=== PATIENT | female | born 1955 | race African-American/Black ===

== ENCOUNTER 2017-04-08 12:11 | Inpatient (IN) | payer MEDICARE, MEDICAID ==
[~2017-04-08] VITALS: Ht 167.6 cm; Wt 90.7 kg
[~2017-04-08 12:11] MED LIST: ASPI-1079 PO; CLOP75TA33 PO; DOCU-138 PO; ISOS60TA4 PO; LOSA100T14 PO; METO25TA6 PO; PRAV20TA57 PO; naproxen; nitroglycerin SL
[2017-04-08] MEDS ORDERED: METHYLPREDNISOLONE SOD SUCC 125 MG/2 ML VIAL IV STA (13:04)
[2017-04-08] MEDS ORDERED: IPRATROPIUM BROMIDE (0.02%) 0.5MG/2.5ML NEB HHN STA (13:04)
[2017-04-08] MEDS ORDERED: ALBUTEROL (0.083%) 2.5MG/3ML NEB HHN STA (13:04)
[2017-04-08 14:59] LABS: INR 1.1; PROTHROMBIN TIME 11.4 sec (9.4-11.6)
[2017-04-08 15:07] LABS: CARBON DIOXIDE 27 mEq/L (21-32); CHLORIDE 106 mEq/L (98-107)
[2017-04-08 15:10] LABS: BASOPHILS % 0.4 % (0.0-2.0); EOSINOPHILS % 0.6 % (0.0-5.0); HEMOGLOBIN. 14.1 g/dL (12.0-16.0); LYMPHOCYTES % 21.4 % (20.0-50.0); MEAN CORPUSCULAR VOLUME 89.2 fL (81.0-99.0); MONOCYTES % 7.5 % (2.0-8.0); NEUTROPHILS % 70.1 % (40.0-76.0); PLATELET 203 x1000/uL (130-400); RED CELL DISTRIBUTION WIDTH 16.3 % (11.6-14.6)
[2017-04-08] MEDS ORDERED: ASPIRIN 325MG TABLET PO ONE (15:45)
[2017-04-08] MEDS ORDERED: NITROGLYCERIN OINT 1GM/INCH UDPKT TD ONE (17:00)
[2017-04-08] MEDS ORDERED: DOCUSATE SODIUM 100MG CAPSULE PO PRN (19:00)
[2017-04-08] MEDS ORDERED: CLONIDINE 0.1MG TABLET PO PRN (19:00)
[2017-04-08] MEDS ORDERED: ENOXAPARIN 40MG/0.4ML SYR SUBCUT SCH (19:00)
[2017-04-08] MEDS ORDERED: ONDANSETRON HCL 4MG/2ML VIAL IV PRN (19:00)
[2017-04-08] MEDS ORDERED: ACETAMINOPHEN 325MG TABLET PO PRN (19:00)
[2017-04-08] MEDS ORDERED: MAGNESIUM/ALUMINUM HYDROXIDE/SIMETHICONE 30ML UDC PO PRN (19:00)
[2017-04-08] MEDS ORDERED: PRAV40TA58 PO (20:42)
[2017-04-08 20:53] VITALS: BP 127/79
[2017-04-08] MEDS ORDERED: MEDICATION NOT ON FORMULARY EA (Pravastatin Sodium 40 MG) PO SCH (21:00)
[2017-04-08] MEDS: ATORVASTATIN CALCIUM 10MG TABLET PO SCH (21:26)
[2017-04-08] MEDS: HYDROCODONE/ACETAMINOPHEN 5/325MG TABLET PO PRN (21:27)
[2017-04-08] MEDS: ENOXAPARIN 30MG/0.3ML SYR SUBCUT SCH (21:27)
[2017-04-08] MEDS: IPRATROPIUM/ALBUTEROL 0.5-3(2.5)MG/3ML NEB INH PRN (21:36)
[2017-04-08] MEDS: BUDESONIDE 0.5MG/2ML NEB HHN SCH (21:37)
[2017-04-08 22:22] VITALS: BP 127/79
[2017-04-09 00:05] VITALS: BP 140/67
[2017-04-09] MEDS: IPRATROPIUM/ALBUTEROL 0.5-3(2.5)MG/3ML NEB INH PRN ×3 (00:12→10:04)
[2017-04-09 00:42] LABS: CARBON DIOXIDE 26 mEq/L (21-32); CHLORIDE 100 mEq/L (98-107); CREATINE KINASE 118 IU/L (26-192); CREATINE KINASE MB FRACTION 1.8 ng/mL (0.5-3.6); TROPONIN I 0.12 ng/mL (0.00-0.04)
[2017-04-09 04:00] VITALS: BP 127/66
[2017-04-09 07:28] LABS: BASOPHILS % 0.1 % (0.0-2.0); HEMATOCRIT. 39.3 % (36.0-48.0); LYMPHOCYTES % 11.4 % (20.0-50.0); MEAN CORPUSCULAR HEMOGLOBIN 29.7 pg (28.0-32.0); MEAN CORPUSCULAR VOLUME 89.7 fL (81.0-99.0); MEAN PLATELET VOLUME 9.2 fl (7.4-10.4); MONOCYTES % 6.4 % (2.0-8.0); NEUTROPHILS % 82.1 % (40.0-76.0); PLATELET 203 x1000/uL (130-400); RED BLOOD CELL COUNT 4.38 mill/uL (4.2-5.4)
[2017-04-09 07:55] LABS: CREATINE KINASE MB FRACTION 1.6 ng/mL (0.5-3.6); TROPONIN I 0.12 ng/mL (0.00-0.04)
[2017-04-09 08:00] VITALS: BP 132/80
[2017-04-09 08:41] LABS: GLUCOSE URINE 1+ (NEGATIVE); KETONES URINE TRACE (NEGATIVE); LEUKOCYTE ESTERASE URINE NEGATIVE (NEGATIVE); NITRITE URINE NEGATIVE (NEGATIVE); OCCULT BLOOD URINE NEGATIVE (NEGATIVE); PROTEIN URINE TRACE (NEGATIVE); SPECIFIC GRAVITY URINE 1.021 (1.005-1.030)
[2017-04-09 08:44] LABS: CLARITY URINE CLEAR (CLEAR); COLOR URINE DARK YELLOW (YELLOW)
[2017-04-09] MEDS ORDERED: ASPIRIN 81MG TABLET PO SCH (09:00)
[2017-04-09 09:12] LABS: *AMPHETAMINES SCREEN URINE NEGATIVE (NEGATIVE); *BARBITURATES SCREEN URINE NEGATIVE (NEGATIVE); *BENZODIAZEPINES SCREEN URINE NEGATIVE (NEGATIVE); *COCAINE SCREEN URINE PRESUMTIVE POSITIVE (NEGATIVE); CANNABINOID URINE SCREEN NEGATIVE (NEGATIVE); METHADONE URINE SCREEN NEGATIVE (NEGATIVE); OPIATES URINE SCREEN PRESUMTIVE POSITIVE (NEGATIVE); PHENCYCLIDINE URINE SCREEN NEGATIVE (NEGATIVE)
[2017-04-09] MEDS: METOPROLOL TARTRATE 25MG TABLET PO SCH (09:53)
[2017-04-09] MEDS: ISOSORBIDE MONONITRATE 60MG TABLET SR 24HR PO SCH (09:53)
[2017-04-09] MEDS: ASPIRIN 81MG EC TABLET PO SCH (09:53)
[2017-04-09] MEDS: ENOXAPARIN 30MG/0.3ML SYR SUBCUT SCH ×2 (09:54→20:54)
[2017-04-09] MEDS: BUDESONIDE 0.5MG/2ML NEB HHN SCH ×2 (10:04→21:06)
[2017-04-09] MEDS: CLOPIDOGREL 75MG TABLET PO SCH (11:33)
[2017-04-09] MEDS: AZITHROMYCIN 500 MG TABLET PO SCH (11:33)
[2017-04-09 12:00] VITALS: BP 110/55
[2017-04-09 16:00] VITALS: BP 115/50
[2017-04-09 20:00] VITALS: BP 109/51
[2017-04-09] MEDS: ATORVASTATIN CALCIUM 10MG TABLET PO SCH (20:54)
[2017-04-10] VITALS (7 sets, daily range): BP systolic 106–137; BP diastolic 50–72
[2017-04-10 06:41] LABS: BASOPHILS % 0.4 % (0.0-2.0); EOSINOPHILS % 0.4 % (0.0-5.0); HEMATOCRIT. 37.3 % (36.0-48.0); HEMOGLOBIN. 12.5 g/dL (12.0-16.0); LYMPHOCYTES % 31.3 % (20.0-50.0); MEAN CORPUSCULAR HEMOGLOBIN 30.1 pg (28.0-32.0); MEAN CORPUSCULAR VOLUME 89.6 fL (81.0-99.0); MEAN PLATELET VOLUME 9.2 fl (7.4-10.4); MONOCYTES % 6.8 % (2.0-8.0); NEUTROPHILS % 61.1 % (40.0-76.0); PLATELET 202 x1000/uL (130-400); RED BLOOD CELL COUNT 4.16 mill/uL (4.2-5.4); RED CELL DISTRIBUTION WIDTH 16.4 % (11.6-14.6)
[2017-04-10 06:50] LABS: CARBON DIOXIDE 27 mEq/L (21-32); CHLORIDE 105 mEq/L (98-107)
[2017-04-10] MEDS: AZITHROMYCIN 500 MG TABLET PO SCH (09:21)
[2017-04-10] MEDS: METOPROLOL TARTRATE 25MG TABLET PO SCH ×2 (09:21→21:01)
[2017-04-10] MEDS: ASPIRIN 81MG EC TABLET PO SCH (09:21)
[2017-04-10] MEDS: ENOXAPARIN 30MG/0.3ML SYR SUBCUT SCH ×2 (09:21→21:02)
[2017-04-10] MEDS: CLOPIDOGREL 75MG TABLET PO SCH (09:21)
[2017-04-10] MEDS: ISOSORBIDE MONONITRATE 60MG TABLET SR 24HR PO SCH (09:21)
[2017-04-10] MEDS: HYDROCODONE/ACETAMINOPHEN 5/325MG TABLET PO PRN ×2 (09:55→18:23)
[2017-04-10] MEDS: POTASSIUM CHLORIDE 20MEQ TABLET SR PO SCH (11:51)
[2017-04-10] MEDS: BUDESONIDE 0.5MG/2ML NEB HHN SCH ×2 (12:15→21:34)
[2017-04-10] MEDS: ATORVASTATIN CALCIUM 10MG TABLET PO SCH (21:00)
[2017-04-11] VITALS (10 sets, daily range): BP systolic 120–167; BP diastolic 26–79
[2017-04-11 06:14] LABS: BASOPHILS % 0.6 % (0.0-2.0); EOSINOPHILS % 1.1 % (0.0-5.0); HEMATOCRIT. 38.8 % (36.0-48.0); HEMOGLOBIN. 12.9 g/dL (12.0-16.0); LYMPHOCYTES % 42.2 % (20.0-50.0); MEAN CORPUSCULAR HEMOGLOBIN 29.8 pg (28.0-32.0); MEAN CORPUSCULAR VOLUME 89.8 fL (81.0-99.0); MONOCYTES % 8.1 % (2.0-8.0); PLATELET 204 x1000/uL (130-400); RED BLOOD CELL COUNT 4.32 mill/uL (4.2-5.4); RED CELL DISTRIBUTION WIDTH 16.1 % (11.6-14.6)
[2017-04-11 06:35] LABS: CARBON DIOXIDE 28 mEq/L (21-32); CHLORIDE 106 mEq/L (98-107)
[2017-04-11] MEDS: ENOXAPARIN 30MG/0.3ML SYR SUBCUT SCH (07:41)
[2017-04-11] MEDS: AZITHROMYCIN 500 MG TABLET PO SCH (08:15)
[2017-04-11] MEDS: HYDROCODONE/ACETAMINOPHEN 5/325MG TABLET PO PRN ×3 (08:16→19:26)
[2017-04-11] MEDS: CLOPIDOGREL 75MG TABLET PO SCH (08:38)
[2017-04-11] MEDS: POTASSIUM CHLORIDE 20MEQ TABLET SR PO SCH (08:38)
[2017-04-11] MEDS: ASPIRIN 81MG EC TABLET PO SCH (08:38)
[2017-04-11] MEDS: METOPROLOL TARTRATE 25MG TABLET PO SCH ×2 (08:38→21:50)
[2017-04-11] MEDS: ISOSORBIDE MONONITRATE 60MG TABLET SR 24HR PO SCH (08:38)
[2017-04-11] MEDS: BUDESONIDE 0.5MG/2ML NEB HHN SCH ×2 (09:19→18:00)
[2017-04-11] MEDS ORDERED: IOHEXOL-300 100 ML BOTTLE ONE ×2 (12:35→13:27)
[2017-04-11] MEDS ORDERED: LIDOCAINE HCL 1% 20ML VIAL (Pyxis) INJ ONE (12:36)
[2017-04-11] MEDS ORDERED: FENTANYL CITRATE/PF 50MCG/ML 2ML VIAL ONE (13:04)
[2017-04-11] MEDS ORDERED: MIDAZOLAM HCL 2 MG/2 ML VIAL ONE (13:04)
[2017-04-11] MEDS ORDERED: IOVERSOL 240MG/ML 100ML BOTTLE IV ONE (13:07)
[2017-04-11] MEDS ORDERED: TICAGRELOR 90 MG TABLET PO ONE (13:48)
[2017-04-11] MEDS ORDERED: ACETAMINOPHEN 325MG TABLET PO PRN (14:00)
[2017-04-11] MEDS ORDERED: ATROPINE SULFATE 1MG/10ML SYR IV PRN (14:00)
[2017-04-11] MEDS ORDERED: HEPARIN SODIUM 1,000 UNIT/1ML VIAL IV ONE (14:03)
[2017-04-11] MEDS: IPRATROPIUM/ALBUTEROL 0.5-3(2.5)MG/3ML NEB INH PRN (18:50)
[2017-04-11] MEDS: ATORVASTATIN CALCIUM 10MG TABLET PO SCH (21:48)
[2017-04-11] MEDS: TICAGRELOR 90 MG TABLET PO SCH (22:02)
[2017-04-12] VITALS (11 sets, daily range): BP systolic 109–160; BP diastolic 60–85
[2017-04-12] MEDS: HYDROCODONE/ACETAMINOPHEN 5/325MG TABLET PO PRN ×3 (04:06→15:49)
[2017-04-12 06:19] LABS: BASOPHILS % 0.4 % (0.0-2.0); EOSINOPHILS % 0.8 % (0.0-5.0); HEMATOCRIT. 40.6 % (36.0-48.0); HEMOGLOBIN. 13.6 g/dL (12.0-16.0); MEAN CORPUSCULAR VOLUME 89.8 fL (81.0-99.0); MEAN PLATELET VOLUME 8.7 fl (7.4-10.4); MONOCYTES % 8.3 % (2.0-8.0); NEUTROPHILS % 63.5 % (40.0-76.0); PLATELET 202 x1000/uL (130-400); RED BLOOD CELL COUNT 4.52 mill/uL (4.2-5.4); RED CELL DISTRIBUTION WIDTH 16.5 % (11.6-14.6)
[2017-04-12 06:20] LABS: CARBON DIOXIDE 26 mEq/L (21-32); CHLORIDE 106 mEq/L (98-107)
[2017-04-12] MEDS: ASPIRIN 81MG EC TABLET PO SCH (08:23)
[2017-04-12] MEDS: POTASSIUM CHLORIDE 20MEQ TABLET SR PO SCH (08:23)
[2017-04-12] MEDS: ISOSORBIDE MONONITRATE 60MG TABLET SR 24HR PO SCH (08:24)
[2017-04-12] MEDS: METOPROLOL TARTRATE 25MG TABLET PO SCH (08:24)
[2017-04-12] MEDS: TICAGRELOR 90 MG TABLET PO SCH (08:25)
[2017-04-12] MEDS: AZITHROMYCIN 500 MG TABLET PO SCH (08:25)
== END 2017-04-12 18:15 | DRG 246 ==
LOC: ER 12:11 → 7WST 16:04 → EDBEDREQ 16:07 → ENRESERV 18:17 → 3WST 04-11 14:08
PROVIDERS: ADMIT Internal Medicine; ATTEND Internal Medicine
PROC: 027034Z Dilation of Coronary Artery, One Artery with Drug-eluting Intraluminal Device, Percutaneous Approach (ICD-10-PCS; principal; 2017-04-11)
PROC: 4A023N7 Measurement of Cardiac Sampling and Pressure, Left Heart, Percutaneous Approach (ICD-10-PCS; 2017-04-11)
PROC: B2111ZZ Fluoroscopy of Multiple Coronary Arteries using Low Osmolar Contrast (ICD-10-PCS; 2017-04-11)
PROC: B2151ZZ Fluoroscopy of Left Heart using Low Osmolar Contrast (ICD-10-PCS; 2017-04-11)
DX: I21.4 Non-ST elevation (NSTEMI) myocardial infarction (principal); J96.00 Acute respiratory failure, unspecified whether with hypoxia or hypercapnia; I50.33 Acute on chronic diastolic (congestive) heart failure; I42.9 Cardiomyopathy, unspecified; I11.0 Hypertensive heart disease with heart failure; I50.9 Heart failure, unspecified; E87.6 Hypokalemia; R73.9 Hyperglycemia, unspecified; I25.10 Atherosclerotic heart disease of native coronary artery without angina pectoris; I34.0 Nonrheumatic mitral (valve) insufficiency; J44.9 Chronic obstructive pulmonary disease, unspecified; M54.31 Sciatica, right side; E66.9 Obesity, unspecified; F14.90 Cocaine use, unspecified, uncomplicated; F17.210 Nicotine dependence, cigarettes, uncomplicated; Z68.32 Body mass index [BMI] 32.0-32.9, adult; Z88.0 Allergy status to penicillin; Z88.1 Allergy status to other antibiotic agents; Z79.82 Long term (current) use of aspirin; Z79.899 Other long term (current) drug therapy; Z95.5 Presence of coronary angioplasty implant and graft; Z91.19 Patient's noncompliance with other medical treatment and regimen; Z86.73 Personal history of transient ischemic attack (TIA), and cerebral infarction without residual deficits
CPT/HCPCS: 36415; 71010; 80048; 80053; 80061; 80305; 81001; 82550; 82553; 83036; 83605; 83690; 83735; 83880; 84443; 84484; 85025; 85347; 85610; 87040; 87804; 92928; 93005; 93306; 93458; 93970; 94640; 94664; 96374; 99285; C1725; C1760; C1769; C1887; C1893; J1644; J1650; J2250; J2930; J3010; J3490; J7611; J7620; J7626; Q9967; J8499

== ENCOUNTER 2018-11-07 11:40 | Emergency (ER) | payer MEDICARE, MEDICAID ==
[~2018-11-07] VITALS: Ht 170.2 cm; Wt 104.0 kg
[~2018-11-07 11:40] MED LIST changes: -CLOP75TA33 PO; -LOSA100T14 PO; -METO25TA6 PO; -PRAV20TA57 PO; -naproxen; -nitroglycerin SL
[2018-11-07] MEDS ORDERED: DIPHENHYDRAMINE 50MG CAPSULE PO ONE (12:15)
[2018-11-07] MEDS ORDERED: FAMOTIDINE 20MG TABLET PO ONE (12:15)
[2018-11-07] MEDS ORDERED: PREDNISONE 20MG TABLET PO ONE (12:15)
[2018-11-07 18:05] VITALS: BP 174/73
== END 2018-11-07 18:35 | disposition home or self-care (01) ==
LOC: ER 12:17
DX: L27.1 Localized skin eruption due to drugs and medicaments taken internally (principal); T42.6X5A Adverse effect of other antiepileptic and sedative-hypnotic drugs, initial encounter; Y92.018 Other place in single-family (private) house as the place of occurrence of the external cause; M54.30 Sciatica, unspecified side; I10 Essential (primary) hypertension; E78.5 Hyperlipidemia, unspecified
CPT/HCPCS: 99284; J7512; Q0163

== ENCOUNTER 2019-04-22 12:23 | Emergency (ER) | payer MEDICARE, MEDICAID ==
[~2019-04-22] VITALS: Ht 170.2 cm; Wt 95.0 kg
[2019-04-22] MEDS ORDERED: ALBUTEROL (0.083%) 2.5MG/3ML NEB HHN STA (13:35)
[2019-04-22] MEDS ORDERED: IPRATROPIUM BROMIDE (0.02%) 0.5MG/2.5ML NEB HHN STA (13:35)
[2019-04-22] MEDS ORDERED: DIPHENHYDRAMINE 50MG CAPSULE PO ONE (13:45)
[2019-04-22] MEDS ORDERED: ACETAMINOPHEN 650MG/20.3ML UDC PO ONE (14:00)
[2019-04-22 19:50] VITALS: BP 142/82
== END 2019-04-22 20:24 | disposition home or self-care (01) ==
LOC: ER 12:23
DX: M79.89 Other specified soft tissue disorders (principal); R06.2 Wheezing; T42.6X5A Adverse effect of other antiepileptic and sedative-hypnotic drugs, initial encounter; Y92.128 Other place in nursing home as the place of occurrence of the external cause; F17.210 Nicotine dependence, cigarettes, uncomplicated
CPT/HCPCS: 71045; 94640; 99283; J7611; Q0163